=== PATIENT | male | born 1930 | race Caucasian/White ===

== ENCOUNTER → 2017-11-30 | Outpatient (CLI) | payer MEDICARE, BC ==
[~2017-11-30] MED LIST: ASPIRIN 81M81 MG/TA2 PO; AVODART0.5 MG PO; DIOVAN; LEVOTHROID0.025 MG PO; METFORMIN500 MG PO; NEXIUM 20MG CAP20 MG PO; TERAZOSIN1 MG PO
== END ==
LOC: COL.RAD 09:50
DX: N40.0 Benign prostatic hyperplasia without lower urinary tract symptoms (principal); N32.89 Other specified disorders of bladder